=== PATIENT | female | born 1995 | race Caucasian/White ===

== ENCOUNTER 2019-11-18 13:11 | Emergency (ER) | payer SELFPAY ==
--- NOTE | 2019-11-18 14:05 | ER Document Report ---
ED Flu Like - General Stated Complaint: SORETHROAT Primary Care Provider: SANCHO ZAMUDIO NP [Primary Care Provider] - Follow up as needed Notes: CHIEF COMPLAINT: Sore throat for 1 day, slight cough for 1 day HPI: 23-year-old female presenting alongside her who has similar symptoms for sore throat for 1 day with a slight cough for 1 day. No definitive fever. No chest pain shortness of breath. No voice change. They were concerned because of a leak in 1 of the pipes in the house and possible mold. Patient has not had travel in the last 14 days or known exposure to a COVID positive patient. ROS: See HPI - all other systems were reviewed and are otherwise negative Constitutional: no fever Eyes: no drainage, no blurred vision ENT: + runny nose, + sore throat Cardiovascular: no chest pain Resp: no SOB,+ cough GI: no vomiting, no diarrhea, no abdominal pain : no dysuria Integumentary: no rash Allergy: no hives Musculoskeletal: no extremity pain or swelling Neurological: no numbness/tingling, no weakness MEDICATIONS: I agree with the patient medications as charted by the RN. ALLERGIES: I agree with the allergies as charted by the RN. PAST MEDICAL HISTORY/PAST SURGICAL HISTORY: Reviewed and agree as charted by RN. SOCIAL HISTORY: Reviewed and agree as charted by RN. FAMILY HISTORY: No significant familial comorbid conditions directly related to patient complaint EXAM: Reviewed vital signs as charted by RN. CONSTITUTIONAL: Alert and oriented and responds appropriately to questions. Well-appearing; well-nourished HEAD: Normocephalic; atraumatic EYES: PERRL; Conjunctivae clear, sclerae non-icteric ENT: normal nose; positive clear rhinorrhea; moist mucous membranes; pharynx without lesions noted, no uvula edema or deviation, no tonsillar hypertrophy, phonation normal NECK: Supple without meningismus; non-tender; no cervical lymphadenopathy, no masses CARD: RRR; no murmurs, no clicks, no rubs, no gallops; symmetric distal pulses RESP: Normal chest excursion without splinting or tachypnea; breath sounds clear and equal bilaterally; no wheezes, no rhonchi, no rales, pulse oximetry 99% on room air not hypoxic ABD/GI: Normal bowel sounds; non-distended; soft, non-tender, no rebound, no guarding; no palpable organomegaly or masses. BACK: The back appears normal and is non-tender to palpation, there is no CVA tenderness EXT: Normal ROM in all joints; non-tender to palpation; no cyanosis, no effusions, no edema SKIN: Normal color for age and race; warm; dry; good turgor; no acute lesions noted NEURO: Moves all extremities equally; Motor and sensory function intact PSYCH: The patient's mood and manner are appropriate. Grooming and personal hygiene are appropriate. MDM: 23-year-old female sore throat, slight rhinitis, slight dry cough for 1 day. No fevers, no known COVID exposures. ill with similar symptoms prior to patient becoming sick, they are concerned about possible mold causing her symptoms, we cannot definitively test for that but will send strep and flu testing. Patient is low risk for COVID at this time TRAVEL OUTSIDE OF THE [place] IN LAST 30 DAYS: No - Related Data Allergies/Adverse Reactions: aspirin [Aspirin] Allergy (Verified 11/30/13 21:26) NSAIDS (Non-Steroidal Anti-Inflamma [Nsaids] Allergy (Verified 11/30/13 21:26) Past Medical History - Social History Smoking Status: Unknown if Ever Smoked Family History: CAD, CVA, DM, Hyperlipidemia, Hypertension, Other - DANAY SIBLEY - Immunizations Immunizations up to date: Yes Hx Diphtheria, Pertussis, Tetanus Vaccination: Yes Physical Exam - Vital signs Vitals: Temp Pulse Resp BP Pulse Ox 98.3 F 100 16 117/77 99 11/18/19 14:11/18/19 14:11/18/19 14:11/18/19 14:11/18/19 14:06 Course - Re-evaluation Re-evalutation: 11/18/19 14:41 Strep and flu test were negative likely a viral etiology will discharge home with symptomatic treatment - Vital Signs Vital signs: Temp Pulse Resp BP Pulse Ox 98.3 F 100 16 117/77 99 11/18/19 14:06 11/18/19 14:11/18/19 14:11/18/19 14:06 11/18/19 14:06 Discharge - Discharge Clinical Impression: Sore throat (viral) Condition: Stable Disposition: HOME, SELF-CARE Additional Instructions: Your strep test and flu test today were both negative, this is likely a viral etiology, Motrin Tylenol for discomfort, salt water gargles 2-3 times daily to help with discomfort, follow-up PCP for further evaluation return for any concerns Referrals: SANCHO ZAMUDIO, PUBLIC SERVICE ADMINISTRATOR [Primary Care Provider] - Follow up as needed
[2019-11-18 14:13] VITALS: BP 117/77
[2019-11-18 14:37] LABS: A TYPE INFLUENZA AG NEGATIVE (NEGATIVE); B INFLUENZA AG NEGATIVE (NEGATIVE)
== END 2019-11-18 15:12 | disposition home or self-care (01) ==
LOC: ER 13:11
DX: J02.9 Acute pharyngitis, unspecified (principal); R05 Cough; Z88.6 Allergy status to analgesic agent
CPT/HCPCS: 87070; 87804; 87880; 99283